=== PATIENT | male | born 1960 | race Caucasian/White ===

== ENCOUNTER 2024-08-07 00:44 | Observation (INO) | payer BC ==
[2024-08-07] MEDS ORDERED: ACETAMINOPHEN 325 MG TABLET PO PRN (01:56)
[2024-08-07] MEDS: FAMOTIDINE 20 MG TAB PO SCH (02:01)
[2024-08-07] MEDS ORDERED: HYDROCODONE/APAP 5/325 MG TAB PO PRN (02:01)
--- NOTE | 2024-08-07 02:01 | P.HP ---
Certification for Inpatient Patient admitted to: Observation With expected LOS: <2 Midnights Practitioner: I am a practitioner with admitting privileges, knowledge of patient current condition, hospital course, and medical plan of care. Services: Services provided to patient in accordance with Admission requirements found in Title 42 Section 412.3 of the Code of Federal Regulations Patient History Date of Service: 08/07/24 Reason for admission: Chest Pain History of Present Illness: 63 yo male with no significant past medical history brought from outside ER where he presented with chest discomfort this evening. Started insidiously after eating dinner which was spicy. Patient started having epigastric pain followed with radiation to the left chest under the left arm. Pain is intermittent 8 out of 10 in severity on and off . Pain is sharp. Associated with some nausea but no vomiting. Denies any diaphoresis Patient was assessed in the ER and is admitted for further management Patient does not have any previous history of CAD Patient was recently diagnosed with some viral infection last week and was treated with steroids and antibiotics Allergies No Known Allergies Allergy (Verified 08/07/24 01:44) Home Medications: NK [No Home Meds] 08/07/24 - Past Medical/Surgical History Past Medical History: Reviewed- Non-Contributory Past Surgical History: Reviewed- Non-Contributory - Family History Sister -: Diabetes Father -: Lung disease Notes: COPD - Social History Smoking Status: Never smoker Review of Systems 10-point ROS is otherwise unremarkable Physical Examination - Vital Signs Temperature: 97.5 F Blood Pressure: 136/72 Pulse: 82 Respirations: 18 Pulse Ox (%): 94 - Physical Exam General: Alert, In no apparent distress, Oriented x3 HEENT: Atraumatic, Normocephalic Neck: Supple, 2+ carotid pulse no bruit, JVD not distended Respiratory: Clear to auscultation bilaterally, Normal air movement Cardiovascular: Regular rate/rhythm, Normal S1 S2 Gastrointestinal: Non-distended, W/out succussion splash Musculoskeletal: No clubbing Integumentary: No significant lesion, No tenderness/swelling Neurological: Normal gait, Normal strength at 5/5 x4 extr, Cranial nerves 3-12 intact, Normal reflexes 2+ Lymphatics: No axilla or inguinal lymphadenopathy Assessment and Plan - Plan Chest pain to rule out ACS Will trend cardiac enzymes Will monitor telemetry Started on aspirin and statin EKG did not show any acute changes suggestive of ischemia Patient denies any chest pain Will get an echocardiogram Cardiology consult GI/DVT prophylaxis Advanced directive full code Discharge Plan: Home Plan to discharge in: 24 Hours - Advance Directives Does patient have a Living Will: No Does patient have a Durable POA for Healthcare: No - Code Status/Comfort Care Code Status: Full Code Time Spent Managing Pts Care (In Minutes): 54
[2024-08-07] MEDS: NA CHLORIDE 0.9% 1,000 ML IV SCH (02:47)
[2024-08-07 02:54] LABS: Sqamous Epithelial <5 /HPF (None Seen); Urine Bacteria None Seen /HPF (<20); Urine Bilirubin NEGATIVE (Negative); Urine Blood Negative (Negative); Urine Clarity Clear (Clear); Urine Color Light-Yellow (Yellow); Urine Culture Reflex Order NOT NEEDED; Urine Glucose NEGATIVE (Negative); Urine Ketones NEGATIVE (Negative); Urine Microscopic Reflex YN ORDER UMIC; Urine Mucus Slight /HPF (None Seen); Urine Nitrite NEGATIVE (Negative); Urine Protein TRACE (Negative); Urine RBC None Seen /HPF (None Seen); Urine Urobilinogen Normal (Normal); Urine WBC <5 /HPF (<5)
[2024-08-07 02:55] LABS: Specific Gravity > 1.030 (1.005-1.030)
[2024-08-07 04:34] LABS: Absolute Lymphocytes (CBC) 0.8 K/uL (0.7-4.9); Absolute Monocytes 0.2 K/uL (0.1-1.3); Absolute Neutrophil 10.2 K/uL (1.8-8.0); Basophils % 0.4 % (0-1.3); Hematocrit 43.9 % (39.6-49.0); Hemoglobin 15.2 g/dL (13.6-17.9); Lymphocytes % 6.9 % (15.3-44.8); MCH 30.8 pg (27.0-35.0); MCHC 34.6 g/dL (32.0-36.0); MCV 89.1 fL (80-100); MPV 8.4 fL (7.6-11.3); Monocytes % 1.7 % (3.3-12.3); Platelets 198 thou/uL (152-406); RBC Red Blood Cell Count 4.93 M/uL (4.33-5.43); Red Cell Distribution Width 13.4 % (12.1-15.2)
[2024-08-07 04:55] LABS: Troponin High Sensitivity 5.4 pg/mL (<58.9)
[2024-08-07 05:00] LABS: ALT/SGPT 32 U/L (16-61); AST/SGOT 12 U/L (15-37); Albumin 3.2 g/dL (3.4-5.0); Albumin/Globulin Ratio 1.1 (1.1-1.8); Alkaline Phosphatase 79 U/L (45-117); Anion Gap 9.2 mEq/L (5.0-15.0); BUN Blood Urea Nitrogen 19 mg/dL (7-18); Bicarbonate 26 mEq/L (21-32); Bilirubin Total 0.6 mg/dL (0.2-1.0); Globulin 2.9 g/dL (2.3-3.5); Glomerular Filtration Rate 97 ml/min (=/>90); Glucose Level 145 mg/dL (74-106); Phosphorus 3.2 mg/dL (2.5-4.9); Potassium 4.2 mEq/L (3.5-5.1); Protein, Total 6.1 g/dL (6.4-8.2); Sodium Level 141 mEq/L (136-145)
[2024-08-07 05:02] LABS: C-Reactive Protein < 2.90 mg/L (<3.00)
[2024-08-07 05:28] LABS: Band Neutrophils 3 % (0-1); Differential Total Cells Count 100; Lymphocytes 2 % (15-42); Monocytes 2 % (0-10); Reactive Lymphocytes 3 %; Segmented Neutrophils 90 % (40-80)
[2024-08-07 05:29] LABS: Blood Morphology Comment NOT SEEN (NOT SEEN); Platelet Estimate ADEQ
[2024-08-07] MEDS: ENOXAPARIN 40 MG/0.4 ML SQ SCH (08:31)
[2024-08-07] MEDS: ASPIRIN EC 81 MG TAB PO SCH (08:31)
[2024-08-07] MEDS: SUCRALFATE 1GM/10ML UCUP PO SCH (10:44)
[2024-08-07] MEDS: PANTOPRAZOLE 40 MG INJ IVP SCH (10:44)
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
--- NOTE | 2024-08-07 12:27 | ECHO ---
HEIGHT: 5 ft 11.5 in WEIGHT: 208 lb 9.6 oz DATE OF STUDY: 08/07/[address]: Wero Shepherd DO 2-DIMENSIONAL: YES M.MODE: YES DOPPLER: YES COLOR FLOW: YES TDS: PORTABLE: DEFINITY: BUBBLE STUDY: DIAGNOSIS: CHEST PAIN CARDIAC HISTORY: CATHERIZATION: NO SURGERY: NO PROSTHETIC VALVE: NO PACEMAKER: NO MEASUREMENTS (cm) DIASTOLIC (NORMALS) SYSTOLIC (NORMALS) IVSd 0.9 (0.6-1.2) LA Diam 3.2 (1.9-4.0) LVEF 60-65% LVIDd 3.6 (3.5-5.7) LVIDs 2.1 (2.0-3.5) %FS LVPWd 0.9 (0.6-1.2) Ao Diam 2.6 (2.0-3.7) 2 DIMENSIONAL ASSESSMENT: RIGHT ATRIUM: NORMAL LEFT ATRIUM: NORMAL RIGHT VENTRICLE: NORMAL LEFT VENTRICLE: NORMAL TRICUSPID VALVE: TRACE TRISCUSPID REGURGITATION MITRAL VALVE: NORMAL PULMONIC VALVE: NORMAL AORTIC VALVE: NORMAL PERICARDIAL EFFUSION: NONE AORTIC ROOT: NORMAL LEFT VENTRICULAR WALL MOTION: NORMAL DOPPLER/COLOR FLOW: NORMAL COMMENTS: 1. NORMAL LEFT VENTRICULAR SYSTOLIC FUNCTION, EJECTION FRACTION 60-65%, NORMAL WALL MOTION 2. NORMAL DIASTOLIC FUNCTION TECHNOLOGIST: ELIAS NEVILLE
[2024-08-07 12:42] VITALS: O2SAT 96
[2024-08-07] MEDS: ATORVASTATIN 40 MG TAB PO SCH (20:42)
[2024-08-07 22:19] LABS: Absolute Monocytes 1.2 K/uL (0.1-1.3); Absolute Neutrophil 12.3 K/uL (1.8-8.0); Basophils % 0.3 % (0-1.3); Hematocrit 45.5 % (39.6-49.0); Hemoglobin 15.6 g/dL (13.6-17.9); Lymphocytes % 12.9 % (15.3-44.8); MCH 30.7 pg (27.0-35.0); MCHC 34.4 g/dL (32.0-36.0); MCV 89.4 fL (80-100); Monocytes % 7.8 % (3.3-12.3); Platelets 218 thou/uL (152-406); Red Cell Distribution Width 13.3 % (12.1-15.2)
[2024-08-07] MEDS: MORPHINE 2 MG/ML SYR IV PRN (22:19)
[2024-08-07] MEDS: ONDANSETRON 4 MG/2 ML VIAL IV PRN (22:21)
[2024-08-07 22:33] LABS: Anion Gap 8.9 mEq/L (5.0-15.0); Magnesium 2.1 mg/dL (1.6-2.4); Potassium 3.9 mEq/L (3.5-5.1)
[2024-08-08 02:19] VITALS: BMI 28.5
[2024-08-08 05:32] LABS: Absolute Lymphocytes (CBC) 2.6 K/uL (0.7-4.9); Absolute Monocytes 0.8 K/uL (0.1-1.3); Absolute Neutrophil 7.8 K/uL (1.8-8.0); Basophils % 0.3 % (0-1.3); Eosinophils % 0.3 % (0-4.4); Hematocrit 41.8 % (39.6-49.0); Hemoglobin 14.4 g/dL (13.6-17.9); Lymphocytes % 23.1 % (15.3-44.8); MCH 30.8 pg (27.0-35.0); MCHC 34.4 g/dL (32.0-36.0); MCV 89.6 fL (80-100); MPV 7.8 fL (7.6-11.3); Monocytes % 7.5 % (3.3-12.3); Neutrophils % 68.8 % (41.7-73.7); Nucleated Red Blood Cells % 0.1 % (0-0); Platelets 180 thou/uL (152-406); RBC Red Blood Cell Count 4.67 M/uL (4.33-5.43); Red Cell Distribution Width 13.4 % (12.1-15.2)
[2024-08-08 05:48] LABS: Albumin 2.9 g/dL (3.4-5.0); Albumin/Globulin Ratio 1.1 (1.1-1.8); Bilirubin Total 0.9 mg/dL (0.2-1.0); Globulin 2.6 g/dL (2.3-3.5); Magnesium 1.9 mg/dL (1.6-2.4); Protein, Total 5.5 g/dL (6.4-8.2)
[2024-08-08 12:32] VITALS: BP 135/86; TEMP 98
--- NOTE | 2024-08-08 12:39 | P.DS ---
Admission Date: 08/07/24 Discharge Date: 08/08/24 Disposition: ROUTINE DISCHARGE Discharge Condition: FAIR Reason for Admission: Chest Pain Hospital Course: Diagnosis Epigastric pain Hx Diverticulosis Remote h/o gastric ulcers. Allergic reaction to Iodine contrast Hx of provoked PE/DVT Patient presented with chest discomfort associated with nausea and epigastric pain. Patient was just seen at [facility] with chief complaint of diffuse epigastric pain, nausea after eating a spicy meal. Patient transferred from [facility] after developing worsening chest and abdominal pain. CT chest/abd/pelvis at [facility] ER noted mild basilar atelectasis in addition to diverticulosis and moderate stool retention, otherwise negative. Unclear exact etiology but suspect possible viral gastroenteritis vs stomach ulcer flare up given negative cardiac work up and prior history/risk factors. Labwork on admission was unremarkable, did note mildly elevated leukocytosis (11.2). He did report being recently prescribed Azithromycin, Solu-medrol, and tessalon perles for viral upper respiratory infection on 08/03. Recommend following up with GI in the near future for further work up, and to consider repeat EGD/Colonoscopy. He reports last EGD/colonoscopy was at least 8- 9 years ago. Patient was feeling better, chest discomfort improved, epigastric pain improved, and was deemed stable for discharge. Patient tolerating diet on day of discharge without issues. In regards to chest pain, patient denied any prior cardiac history. Cardiac work up here was negative. Troponin's were negative x3. EKG was without STEMI criteria, not suggestive of ischemia. Cardiology was consulted and recommending outpatient stress test, no further cardiac work up Vital Signs/Physical Exam: Temp Pulse Resp BP Pulse Ox 98.0 F 62 18 135/86 97 08/08/24 12:00 08/08/24 12:08/08/24 12:08/08/24 12:08/08/24 12:00 General: Alert, In no apparent distress, Oriented x3 HEENT: Mucous membr. moist/pink, Sclerae nonicteric Neck: Supple, JVD not distended Respiratory: Clear to auscultation bilaterally, Normal air movement Cardiovascular: No edema, Regular rate/rhythm, Normal S1 S2 Gastrointestinal: Normal bowel sounds, Soft and benign, Non-distended, No tenderness Musculoskeletal: No swelling Integumentary: No rashes, No cyanosis Neurological: Normal strength at 5/5 x4 extr Lymphatics: No axilla or inguinal lymphadenopathy Laboratory Data at Discharge: WBC 11.30 thou/uL (4.3-10.9) H 08/08/24 05:22 Hgb 14.4 g/dL (13.6-17.9) 08/08/24 05:22 Hct 41.8 % (39.6-49.0) 08/08/24 05:22 Plt Count 180 thou/uL (152-406) 08/08/24 05:22 Sodium 141 mEq/L (136-145) 08/08/24 05:22 Potassium 4.0 mEq/L (3.5-5.1) 08/08/24 05:22 BUN 18 mg/dL (7-18) 08/08/24 05:22 Creatinine 0.87 mg/dL (0.70-1.30) 08/08/24 05:22 Glucose 99 mg/dL (74-106) 08/08/24 05:22 Phosphorus 3.0 mg/dL (2.5-4.9) 08/07/24 22:03 Magnesium 1.9 mg/dL (1.6-2.4) 08/08/24 05:22 Total Bilirubin 0.9 mg/dL (0.2-1.0) 08/08/24 05:22 AST 11 U/L (15-37) L 08/08/24 05:22 ALT 27 U/L (16-61) 08/08/24 05:22 Alkaline Phosphatase 69 U/L (45-117) 08/08/24 05:22 Triglycerides 73 mg/dL (<150) 08/07/24 04:08 Cholesterol 145 mg/dL (<200) 08/07/24 04:08 HDL Cholesterol 39 mg/dL (40-60) L 08/07/24 04:08 Cholesterol/HDL Ratio 3.72 08/07/24 04:08 Home Medications: Omeprazole 20 mg PO BID #60 cap 08/08/24 Sucralfate [Carafate -Tab] 1 gm PO ACHS #30 tab 08/08/24 New Medications: Sucralfate [Carafate -Tab] 1 gm PO ACHS #30 tab Omeprazole 20 mg PO BID #60 cap Physician Discharge Instructions: Physician discharge instructions: Patient presented with chest discomfort associated with nausea and epigastric pain. Patient was just seen at [facility] with chief complaint of diffuse epigastric pain, nausea after eating a spicy meal. Patient transferred from [facility] after developing worsening chest and abdominal pain. CT chest/abd/pelvis at [facility] ER noted mild basilar atelectasis in addition to diverticulosis and moderate stool retention, otherwise negative. Unclear exact etiology but suspect possible viral gastroenteritis vs stomach ulcer flare up given negative cardiac work up and prior history/risk factors. Labwork on admission was unremarkable, did note mildly elevated leukocytosis (11.2). He did report being recently prescribed Azithromycin, Solu-medrol, and tessalon perles for viral upper respiratory infection on 08/03. Recommend following up with GI in the near future for further work up, and to consider repeat EGD/Colonoscopy. He reports last EGD/colonoscopy was at least 8- 9 years ago. Patient was feeling better, chest discomfort improved, epigastric pain improved, and was deemed stable for discharge. Patient tolerating diet on day of discharge without issues. In regards to chest pain, patient denied any prior cardiac history. Cardiac work up here was negative. Troponin's were negative x3. EKG was without STEMI criteria, not suggestive of ischemia. Cardiology was consulted and recommending outpatient stress test, no further cardiac work up Medications: Follow up: PCP 3-5 days GI 2-4 weeks Cardiology 2-4 weeks Please call to schedule / confirm appointments Diet: AHA Activity: Ad ricardo Followup: Cedric Alcala MD [Primary Care Provider] - 1 Week Buddy Tobias MD [ACTIVE - CAN ADMIT] - 1 Week (For arrangement for out patient stress test.) Time spent managing pt's care (in minutes): 34
== END 2024-08-08 13:30 | disposition home or self-care (01) ==
LOC: 2ND 00:44 → UNDOADMOB 01:14 → 2ND 01:14
PROVIDERS: ADMIT Family Medicine; ATTEND Internal Medicine
DX: R07.9 Chest pain, unspecified (principal); R06.02 Shortness of breath; R10.13 Epigastric pain; T50.8X5A Adverse effect of diagnostic agents, initial encounter; Y92.538 Other ambulatory health services establishments as the place of occurrence of the external cause; K57.90 Diverticulosis of intestine, part unspecified, without perforation or abscess without bleeding; J98.11 Atelectasis; R11.0 Nausea
CPT/HCPCS: 93306; 85025 ×3; 81001; 80048; 36415 ×2; 83735 ×3; 84100 ×2; 80061; 83036; 84484 ×3; 80053 ×2; 86140; J2470 ×2; J1650 ×2; J2270; J2405; J7030 ×4; G0378; G0379